=== PATIENT | female | born 1960 | race Caucasian/White ===

== ENCOUNTER 2017-05-19 08:58 | Emergency (ER) | payer BC, OTHER ==
[2017-05-19 09:14] VITALS: BP 140/88
[2017-05-19] MEDS ORDERED: Ondansetron ODT TAB* 4 MG PO ONE (10:42)
[2017-05-19] MEDS ORDERED: Al Hydrox/Mg Hydrox/Simet LIQ* 30 ML UDC PO ONE (10:42)
--- NOTE | 2017-05-19 11:10 | UC ---
Abdominal Pain Female HPI - HPI Summary HPI Summary: This is a 56 yo female with a h/o gastritis who presents with epigastric abd pain. Symptoms started ~ 3months ago after a prolonged course of Ibuprofen for a R shoulder injury. She was started on Protonix by her PCP x 30d which was effective. She has had recurrent symptoms twice since finishing the Protonix in the last 2 months. The first episode she was able to manage on her own at home. This am she had recurrence of epigastric pain with nausea, no vomiting. No recent melena or other changed to stools. She has taken 2 doses of Zantac this am without improvement. No associated CP or SOB. No palpitations. - History of Current Complaint Chief Complaint: UCAbdominalPain Stated Complaint: ABDOMINAL PAIN Time Seen by Provider: 05/19/17 10:28 Allergies/Adverse Reactions: Allergies Allergy/AdvReac Type Severity Reaction Status Date / Time No Known Allergies Allergy Verified 05/19/17 09:13 PMH/Surg Hx/FS Hx/Imm Hx Cardiovascular History: Hypertension GI/ History: Gastroesophageal Reflux - Surgical History Surgical History: Yes Surgery Procedure, Year, and Place: left knee ARTHROSCOPY 2009, left and rt hand surgery for carpal tunnel and 2 triggers fingers 2011 - Family History Family History: None pertinent - Social History Alcohol Use: Rare Alcohol Amount: 1 PER YREAR Substance Use Type: None Smoking Status (MU): Former Smoker Amount Used/How Often: 3 PACKS A DAY Have You Smoked in the Last Year: No When Did the Patient Quit Smoking/Using Tobacco: 1983 - Immunization History Most Recent Influenza Vaccination: 04/21 Most Recent Tetanus Shot: UNKNOWN Most Recent Pneumonia Vaccination: UNKNOWN Review of Systems Constitutional: Negative Skin: Negative Eyes: Negative ENT: Epistaxis Respiratory: Negative Cardiovascular: Negative Gastrointestinal: Abdominal Pain, Nausea Genitourinary: Negative Motor: Negative Neurovascular: Negative Musculoskeletal: Negative Neurological: Negative Psychological: Negative Is Patient Immunocompromised?: No All Other Systems Reviewed And Are Negative: Yes Physical Exam Triage Information Reviewed: Yes Appearance: Pain Distress - mild Vital Signs: Initial Vital Signs Temp 97.1 F 05/19/17 09:07 Pulse 76 05/19/17 09:07 Resp 18 05/19/17 09:07 BP 140/88 05/19/17 09:07 Pulse Ox 100 05/19/17 09:07 Vital Signs Reviewed: Yes ENT: Positive: Normal ENT inspection Neck exam: Normal Respiratory: Positive: Chest non-tender, Lungs clear. Negative: Crackles, Rhonchi, Stridor Cardiovascular: Positive: RRR, No Murmur Abdomen Description: Positive: Soft. Negative: Nontender - epigastric TTP Bowel Sounds: Positive: Present Musculoskeletal Exam: Normal Neurological Exam: Normal Psychological Exam: Normal Skin Exam: Normal Diagnostics - Laboratory Diagnostic Studies Completed/Ordered: UA - Re-Evaluation - Re-Evaluation First Eval Re-Evaluation Time: 11:15 Change: Improved Comment: Re-evaled after Zofran and Maalox administered with improved in symptoms Abd Pain Female Course/Dx - Course Course Of Treatment: This is a 56 yo female with recent h/o gastritis with recurrent symptoms. Recommend restarting PPI and following up with PCP for possible referral for EGD. - Differential Dx/Diagnosis Differential Diagnosis: Pancreatitis, Peptic Ulcer Disease, Renal Colic Provider Diagnoses: 1. Gastritis Discharge - Discharge Plan Condition: Stable Disposition: HOME Prescriptions: Ondansetron ODT TAB* [Zofran 4 MG Odt TAB*] 4 mg PO Q6H PRN #30 tab.odt PRN Reason: Nausea Pantoprazole TAB (NF) [Protonix TAB (NF)] 40 mg PO DAILY #30 tab Patient Education Materials: Gastritis (ED) Referrals: Carissa Hector NP [Primary Care Provider] - 1 Week Additional Instructions: Instructions: 1. Please follow up with your PCP regarding your recurrent symptoms to discuss referral for EGD 2. Take protonix as directed, use Zofran as needed for nausea
--- NOTE | 2017-05-20 18:59 | UC ---
Progress - Progress Note Progress Note: Appear pt was seen for abdominal pain and had no urinary symptoms at last visit. Urine POC showed trace leuks, but no growth on final culture. No change. - Results/Orders Results/Orders: Urine culture shows no growth Re-Evaluation - Re-Evaluation First Eval Re-Evaluation Time: 11:15 Change: Improved Comment: Re-evaled after Zofran and Maalox administered with improved in symptoms
== END 2017-05-19 11:20 | disposition home or self-care (01) ==
LOC: UCEAST 08:58
DX: K29.70 Gastritis, unspecified, without bleeding (principal); Z87.891 Personal history of nicotine dependence
CPT/HCPCS: 81003; 87086; 99212; A9270-GY; G0463

== ENCOUNTER 2017-05-21 08:08 | Emergency (ER) | payer BC, OTHER ==
--- NOTE | 2017-05-21 09:04 | UC ---
Abdominal Pain Female HPI - HPI Summary HPI Summary: 56 yo female has had chronic intermittent epigastric pain since Mar which she attributes to NSAID use Was started on PPI with good response symptoms have recurred pain epigastric seen here on 05/19 now with marked nausea and vomiting x 1 no wt change no change bowel habits or BMs - History of Current Complaint Chief Complaint: UCAbdominalPain Stated Complaint: STOMACH PAIN Time Seen by Provider: 05/21/17 08:34 Hx Obtained From: Patient Onset/Duration: Sudden Onset, Lasting Weeks Timing: Intermittent Episodes Lasting: - houyrs to days Severity Initially: Moderate Severity Currently: Moderate Pain Intensity: 4 Pain Scale Used: 0-10 Numeric Location: Epigastric Radiates: No Aggravating Factor(s): Food Alleviating Factor(s): Nothing, Medications - initially PPI helped, Other: Associated Signs and Symptoms: Positive: Nausea, Vomiting Allergies/Adverse Reactions: Allergies Allergy/AdvReac Type Severity Reaction Status Date / Time No Known Allergies Allergy Verified 05/21/17 08:19 Home Medications: Home Medications Acetaminophen [Tylenol] 325 mg PO Q6H PRN 05/21/17 [History Confirmed 05/21/17] Al Hydrox/Mg Hydrox/Simet LIQ* [Maalox Plus*] 30 ml PO Q4H PRN 05/21/17 [ History Confirmed 05/21/17] PMH/Surg Hx/FS Hx/Imm Hx Previously Healthy: Yes - Surgical History Surgical History: Yes Surgery Procedure, Year, and Place: left knee ARTHROSCOPY 2009, left and rt hand surgery for carpal tunnel and 2 triggers fingers 2011. L knee replacement - Family History Known Family History: Positive: Hypertension Family History: None pertinent - Social History Alcohol Use: Rare Alcohol Amount: 1 PER YREAR Substance Use Type: None Smoking Status (MU): Former Smoker Amount Used/How Often: 3 PACKS A DAY Have You Smoked in the Last Year: No When Did the Patient Quit Smoking/Using Tobacco: 1983 - Immunization History Most Recent Influenza Vaccination: 04/21 Most Recent Tetanus Shot: UNKNOWN Most Recent Pneumonia Vaccination: UNKNOWN Review of Systems Constitutional: Negative Skin: Negative Eyes: Negative ENT: Negative Respiratory: Negative Cardiovascular: Negative Gastrointestinal: Abdominal Pain, Vomiting, Nausea Genitourinary: Negative Motor: Negative Neurovascular: Negative Musculoskeletal: Negative Neurological: Negative Psychological: Negative Is Patient Immunocompromised?: No All Other Systems Reviewed And Are Negative: Yes Physical Exam Triage Information Reviewed: Yes Appearance: Well-Appearing, No Pain Distress, Well-Nourished Vital Signs: Initial Vital Signs Temp 98.4 F 05/21/17 08:14 Pulse 89 05/21/17 08:14 Resp 16 05/21/17 08:14 BP 130/80 05/21/17 08:14 Pulse Ox 96 05/21/17 08:14 Vital Signs Reviewed: Yes Eyes: Positive: Conjunctiva Clear ENT: Positive: Hearing grossly normal, Uvula midline. Negative: Nasal congestion, Trismus, Muffled voice, Dental tenderness, Sinus tenderness Neck: Positive: Supple, Nontender Respiratory: Positive: Lungs clear, Normal breath sounds, No respiratory distress Cardiovascular Exam: Normal Cardiovascular: Positive: RRR, No Murmur Abdomen Description: Negative: Nontender - tender epigastrium and left upper quad Musculoskeletal: Positive: ROM Intact, No Edema Neurological: Positive: Alert, Muscle Tone Normal Psychological Exam: Normal Skin Exam: Normal Diagnostics - Radiology No standard instances Xray Interpretation: Positive (See Comments) - 1. HETEROGENEOUS LIVER, WITH A MORE DIFFUSE NODULAR APPEARANCE TO THE LEFT LOBE OF LIVER. RECOMMEND CONSIDERATION OF FURTHER EVALUATION WITH MULTIPHASE CONTRAST-ENHANCED LIVER PROTOCOL CT OR CONTRAST-ENHANCED MRI OF THE ABDOMEN. 2. CHOLELITHIASI Abd Pain Female Course/Dx - Differential Dx/Diagnosis Provider Diagnoses: acute nausea/vomiting. gallstones. nodular liver Discharge - Discharge Plan Condition: Stable Disposition: HOME Patient Education Materials: Gallstones (ED), Acute Nausea and Vomiting (ED) Referrals: Nils Jackson MD [Medical Doctor] - As Soon As Possible Carissa Hector NP [Primary Care Provider] - As Soon As Possible Additional Instructions: your ultrasound showed gallstones your ultrasound showed a nodular liver which needs further investigation get your blood work including liver functions drawn as planned to er for new or worsening symptoms
--- NOTE | 2017-05-21 10:03 | RAD ---
HISTORY: Epigastric pain, vomiting COMPARISONS: July 28, 2014 TECHNIQUE: Multiple transverse and longitudinal ultrasound images were obtained of the right upper quadrant of the abdomen using grayscale, color Doppler, and spectral Doppler imaging. FINDINGS: LIVER: The liver is diffusely coarse in echotexture. There is a more diffuse nodular appearance to the parenchyma of the left lobe of liver. There is normal hepatopedal flow of the portal vein on Doppler imaging. BILIARY TREE: There is no intrahepatic or extrahepatic biliary dilatation. The common duct measures 0.2 cm. GALLBLADDER: The gallbladder is distended. Multiple shadowing echogenic foci consistent with gallstones are noted. There is no gallbladder wall thickening, pericholecystic fluid, or sonographic Hernández sign. PANCREAS: The head of the pancreas is unremarkable. The tail of the pancreas is not well visualized secondary to overlying bowel gas. RIGHT KIDNEY: The right kidney is normal in shape, size, contour, and echogenicity. There is no hydronephrosis or nephrolithiasis. The right kidney measures 12.2 x 4.3 x 4.4 cm. AORTA AND IVC: The aorta and IVC are unremarkable. Normal arterial and venous waveforms are identifiable on spectral Doppler imaging. FLUID: There are no pleural effusions. There is no free fluid within the hepatorenal recess. OTHER FINDINGS: None. IMPRESSION: 1. HETEROGENEOUS LIVER, WITH A MORE DIFFUSE NODULAR APPEARANCE TO THE LEFT LOBE OF LIVER. RECOMMEND CONSIDERATION OF FURTHER EVALUATION WITH MULTIPHASE CONTRAST-ENHANCED LIVER PROTOCOL CT OR CONTRAST-ENHANCED MRI OF THE ABDOMEN. 2. CHOLELITHIASIS.
[2017-05-21 10:10] VITALS: BP 142/94
[2017-05-21] MEDS ORDERED: Ondansetron ODT TAB* 4 MG PO ONE (10:19)
== END 2017-05-21 10:28 | disposition home or self-care (01) ==
LOC: UCEAST 08:08
DX: K80.80 Other cholelithiasis without obstruction (principal); K76.9 Liver disease, unspecified
CPT/HCPCS: 76705; 99211; A9270-GY; G0463

== ENCOUNTER → 2017-08-18 11:02 | Day surgery (SDC) | payer BC ==
[~2017-08-18 11:02] MED LIST: Atracurium* 10 MG/ML 10 ML VIAL ONE; Atropine 1MG/ML INJ* 1 ML VIAL ONE; Buffered Lidocaine 0.9% SYRIN* 5 ML/SYR SYRINGE INTRADERM ONE; Buffered Lidocaine 0.9% SYRIN* 5 ML/SYR SYRINGE ONE; Dexamethasone IV* 4 MG/ML 1 ML (4 MG) ONE; DiMENhydriNATE IV* 50 MG/ML VIAL IV PUSH PRN; Glycopyrrolate IV* 0.2 MG/ML 1 ML VIAL ONE; HYDROcodone/ACETAMIN 5-325 MG* 1 TAB PO PRN; HYDROmorphone INJ* 1 MG/ML CARPUJECT SYRINGE IV PRN; Midazolam* 1 MG/ML 2 ML VIAL (2 MG) ONE; Naloxone* 0.4 MG/ML 1 ML VIAL IV PRN; Neostigmine Methylsulfate* 2 MG/2 ML SYRINGE ONE; Ondansetron INJ* 2 MG/ML VIAL IV PRN; Ondansetron INJ* 2 MG/ML VIAL ONE; Propofol* 10 MG/ML 20 ML BTL IV PUSH ONE; Scopolamine 1.5 mg* PATCH ONE; Scopolamine 1.5 mg* PATCH TRANSDERM PRN; Scopolamine PATCH Remove* 1 NOTE MISC PATCH OFF ONE; ceFAZolin 1 GM in Dextrose (*) 2 GM/100 ML BAG IVPB ONE; fentaNYL* 50 MCG/ML 2 ML VIAL (100 MCG VIAL) IV PRN; fentaNYL* 50 MCG/ML 2 ML VIAL (100 MCG VIAL) ONE; oxyCODONE TAB* 5 MG TAB ONE; oxyCODONE TAB* 5 MG TAB PO PRN
[2017-08-18 17:00] VITALS: BP 119/64
--- NOTE | 2017-08-19 20:39 | OP ---
CC: Yasemin Gutierrez MD; Rosita Franks MD * DATE OF OPERATION: 08/18/17 - [facility] DATE OF : 56 SURGEON: Chandan Nunn MD GUARD CHIEF: FRANCES Joseph ANESTHESIOLOGIST: Dr. Contreras. ANESTHESIA: General endotracheal. PRE-OP DIAGNOSIS: Symptomatic gallstones. POST-OP DIAGNOSIS: Symptomatic gallstones. OPERATIVE PROCEDURE: Laparoscopic cholecystectomy and core needle biopsy. ESTIMATED BLOOD LOSS: Minimal. IV FLUIDS: Crystalloid. SPECIMENS: Gallbladder and core biopsy of liver. DRAINS: None. COMPLICATIONS: None. COUNTS: The instrument, needle, and sponge counts were correct. DESCRIPTION OF PROCEDURE: The patient was brought to the operating room and placed on the table supine. Sequential compression devices were placed in both lower extremities. General anesthesia was administered. The abdomen was prepped and draped in the usual sterile fashion and time-out was performed. Local anesthetic was infiltrated into the skin and soft tissue prior to making each incision. Entry to the abdomen was through a transumbilical incision used to accommodate a 5-mm trocar. Carbon dioxide was insufflated to a pressure of 15 mmHg. Under direct visualization, a 12-mm trocar was placed in the subxiphoid position and two 5-mm trocars were placed in the right upper quadrant. The liver was inspected and noted to have evidence of lobular scarring consistent with cirrhosis. The gallbladder had evidence of chronic inflammation with no acute inflammation or edema. Due to the stiffness of the liver, it was difficult to retract the gallbladder. It was able to be grasped with the fundus and partially retracted and then sharp and blunt dissection was used to divide the peritoneum along the medial and lateral aspects of the gallbladder and at the infundibulum identifying the cystic duct and cystic artery. dissected out and clipped and divided. Due to the proximity of small bowel to this area of dissection, it was decided to perform the remaining portion of the cholecystectomy in a dome down fashion, and therefore, the peritoneum and the gallbladder was scored along the fundus and the liver was retracted superiorly, the fundus and the gallbladder retracted caudad and then sharp dissection caudally used to dissect the gallbladder from the liver . Once the gallbladder was free, it was placed into a retrieval bag and retrieved through the subxiphoid port site. After assuring hemostasis, a core biopsy of the right lobe of the liver was performed through a separate stab wound incision in the right upper quadrant. The specimen was submitted to pathology in formalin. Hemostasis was assured. Ports were removed under direct visualization and carbon dioxide was released. Skin incisions were closed with 4-0 Monocryl in subcuticular fashion and Steri-Strips were applied. The patient tolerated the procedure well, was extubated and transferred to Recovery in stable condition. [id number]/[facility] #: [id number] [facility]ALTH CENTERAnnita
== END | disposition home or self-care (01) ==
LOC: OR 11:02
PROVIDERS: ATTEND Surgery
DX: K80.20 Calculus of gallbladder without cholecystitis without obstruction (principal); K75.81 Nonalcoholic steatohepatitis (NASH); I47.1 Supraventricular tachycardia; R00.2 Palpitations; Z87.891 Personal history of nicotine dependence; E66.9 Obesity, unspecified
CPT/HCPCS: 88304; 88307; A9270-GY; J0461; J0690; J1100; J2250; J2405; J2704; J3010

== ENCOUNTER 2018-10-09 12:03 | Emergency (ER) | payer BC ==
[2018-10-09 12:19] VITALS: BP 149/85
--- NOTE | 2018-10-09 12:28 | UC ---
Respiratory Complaint HPI - HPI Summary HPI Summary: 57-year-old woman comes in with a chief complaint of upper respiratory tract infection symptoms for 5-6 days. No fevers. Initially he had a runny nose and it's moved into her chest. Sputum is green. He isn't when she wakes up in the morning sputum was at its worst. Hot showers help get up the sputum. Does hear chest congestion but primarily in the morning unless later in the day. No wheezing or history of asthma. Not a smoker. - History of Current Complaint Chief Complaint: UCGeneralIllness Stated Complaint: COUGH Time Seen by Provider: 10/09/18 12:07 Pain Intensity: 0 - Allergies/Home Medications Allergies/Adverse Reactions: Allergies Allergy/AdvReac Type Severity Reaction Status Date / Time No Known Allergies Allergy Verified 10/09/18 12:11 PMH/Surg Hx/FS Hx/Imm Hx Previously Healthy: Yes - Surgical History Surgical History: Yes Surgery Procedure, Year, and Place: left knee replacement 2015 [facility] [place]. left knee arthroscopy 2009 [facility] [place]. bilateral hand ctr/trigger finger releases 2011 [facility]. galbladder 2017 - Family History Known Family History: Positive: Hypertension, Non-Contributory Family History: None pertinent - Social History Alcohol Use: None Alcohol Amount: 1 PER YREAR Substance Use Type: None Smoking Status (MU): Former Smoker Amount Used/How Often: 3 PPD for 10 years Have You Smoked in the Last Year: No When Did the Patient Quit Smoking/Using Tobacco: 1983 - Immunization History Most Recent Influenza Vaccination: 04/21 Most Recent Tetanus Shot: UNKNOWN Most Recent Pneumonia Vaccination: UNKNOWN Review of Systems All Other Systems Reviewed And Are Negative: Yes Constitutional: Positive: Negative Skin: Positive: Negative Eyes: Positive: Negative ENT: Positive: Ear Ache, Nasal Discharge, Sinus Congestion Respiratory: Positive: Cough, Other - see hpi Cardiovascular: Positive: Negative Gastrointestinal: Positive: Negative Motor: Positive: Negative Neurovascular: Positive: Negative Musculoskeletal: Positive: Negative Neurological: Positive: Negative Psychological: Positive: Negative Is Patient Immunocompromised?: No Physical Exam Triage Information Reviewed: Yes Appearance: Well-Appearing, No Pain Distress, Well-Nourished Vital Signs: Initial Vital Signs Temp 96.1 F 10/09/18 12:13 Pulse 79 10/09/18 12:13 Resp 18 10/09/18 12:13 BP 149/85 10/09/18 12:13 Pulse Ox 96 10/09/18 12:13 Vital Signs Reviewed: Yes Eye Exam: Normal Eyes: Positive: Conjunctiva Clear ENT: Positive: Pharynx normal, Nasal congestion, TMs normal Neck: Positive: Supple Respiratory: Positive: Lungs clear, Normal breath sounds, No respiratory distress Cardiovascular: Positive: RRR Musculoskeletal Exam: Normal Musculoskeletal: Positive: Strength Intact, ROM Intact Neurological Exam: Normal Neurological: Positive: Alert, Muscle Tone Normal Psychological Exam: Normal Psychological: Positive: Age Appropriate Behavior Skin Exam: Normal Respiratory Course/Dx - Course Course Of Treatment: DISCUSSED VIRAL VERSES BACTERIAL INFECTION AND THE ROLE OF ANTIBIOTICS. THE PATIENT WISHES TO BE ON ANTIBIOTICS AT THIS TIME. - Differential Dx/Diagnosis Provider Diagnosis: Bronchitis Discharge - Sign-Out/Discharge Documenting (check all that apply): Patient Departure All imaging exams completed and their final reports reviewed: No Studies - Discharge Plan Condition: Stable Disposition: HOME Prescriptions: Azithromyxin MALATHI (NF) [Z-Malathi (Zithromax) 250 mg tabs #6] 2 tab PO .TODAY, THEN 1 DAILY #6 tab Patient Education Materials: Acute Bronchitis (ED) Referrals: Yasemin Gutierrez MD [Primary Care Provider] - Additional Instructions: FOLLOW UP WITH YOUR DOCTOR IF NOT COMPLETELY IMPROVED. GET REEVALUATED SOONER FOR ANY WORSENING OF YOUR CONDITION OR ANY QUESTIONS OR CONCERNS. - Billing Disposition and Condition Condition: STABLE Disposition: Home
== END 2018-10-09 12:32 | disposition home or self-care (01) ==
LOC: UCEAST 12:03
DX: J40 Bronchitis, not specified as acute or chronic (principal); Z87.891 Personal history of nicotine dependence
CPT/HCPCS: 99212; G0463

== ENCOUNTER 2019-06-21 16:25 | Emergency (ER) | payer BC ==
[2019-06-21 16:37] VITALS: BP 143/82
[2019-06-21] MEDS ORDERED: Albuterol 2.5 MG/3 ML NEB.SOL* (0.083%) INH ONE (17:41)
--- NOTE | 2019-06-21 17:49 | UC ---
Respiratory Complaint HPI - HPI Summary HPI Summary: 58-year-old female presents with one-week history of cough, chest congestion, shortness of breath, and wheezing. States cough was initially productive for some clear sputum but has become more "tight". The shortness of breath and wheezing developed approximately 3 days ago and have progressively worsened. Patient states the wheezing is worse at night. Reports some mild nasal congestion. Denies fever, chills, ear pain, sore throat, chest pain, palpitations, diaphoresis, abdominal pain, nausea, or vomiting. - History of Current Complaint Chief Complaint: UCRespiratory Stated Complaint: COUGH, CONGESTION Time Seen by Provider: 06/21/19 17:09 Hx Obtained From: Patient Pain Intensity: 0 - Allergies/Home Medications Allergies/Adverse Reactions: Allergies Allergy/AdvReac Type Severity Reaction Status Date / Time No Known Allergies Allergy Verified 06/21/19 16:37 PMH/Surg Hx/FS Hx/Imm Hx Previously Healthy: Yes GI/ History: Gastroesophageal Reflux, Gall Bladder Disease - Surgical History Surgical History: Yes Surgery Procedure, Year, and Place: left knee replacement 2015 [facility] [place]. left knee arthroscopy 2009 [facility] [place]. bilateral hand ctr/trigger finger releases 2011 [facility] [place]. galbladder 2017 - Family History Known Family History: Positive: Hypertension - Social History Occupation: Employed Full-time Lives: With Family Alcohol Use: Rare Alcohol Amount: 1 PER YREAR Substance Use Type: None Smoking Status (MU): Former Smoker Amount Used/How Often: 3 PPD for 10 years Have You Smoked in the Last Year: No When Did the Patient Quit Smoking/Using Tobacco: 1983 - Immunization History Most Recent Influenza Vaccination: 04/21 Most Recent Tetanus Shot: UNKNOWN Most Recent Pneumonia Vaccination: UNKNOWN Review of Systems All Other Systems Reviewed And Are Negative: Yes Constitutional: Negative: Fever, Chills Eyes: Negative: Drainage, Eye Redness ENT: Positive: Nasal Discharge, Sinus Congestion. Negative: Sore Throat, Ear Ache, Sinus Pain/Tenderness Respiratory: Positive: Shortness Of Breath, Cough Cardiovascular: Negative: Chest Pain Gastrointestinal: Negative: Abdominal Pain, Vomiting, Nausea Genitourinary: Positive: Negative Musculoskeletal: Positive: Negative Neurological: Positive: Negative Is Patient Immunocompromised?: No Physical Exam - Summary Physical Exam Summary: GENERAL APPEARANCE: Alert and cooperative obese adult female who appears to be in no acute distress. EYES: Conjunctiva clear. No drainage. EARS: External auditory canals and tympanic membranes clear, hearing grossly intact. NOSE: Mild nasal congestion. No nasal discharge. THROAT: Pharynx normal. No tonsilar inflammation, swelling, exudate, or lesions. Uvula midline. NECK: Neck supple, non-tender without lymphadenopathy. CARDIAC: Normal S1 and S2. No S3, S4 or murmurs. Rhythm is regular. There is no peripheral edema, cyanosis or pallor. Extremities are warm and well perfused. Capillary refill is less than 2 seconds. Peripheral pulses intact. LUNGS: Diffuse bilateral expiratory wheezes. Bronchospastic cough. ABDOMEN: Positive bowel sounds. Soft, nondistended, nontender. No guarding or rebound. No masses or hepatosplenomegally. MUSKULOSKELETAL: ROM intact to all extremities. No joint erythema or tenderness. Normal muscular development. Normal gait. SKIN: Skin normal color, texture and turgor with no lesions or eruptions. Triage Information Reviewed: Yes Vital Signs: Initial Vital Signs Temp 97.2 F 06/21/19 16:32 Pulse 79 06/21/19 16:32 Resp 16 06/21/19 16:32 BP 143/82 06/21/19 16:32 Pulse Ox 99 06/21/19 16:32 Vital Signs Reviewed: Yes Re-Evaluation - Re-Evaluation First Eval Re-Evaluation Time: 18:20 Change: Improved Comment: Post nebulizer treatment patient states she feels like she is breathing a little more easily and the wheezing seems to have improved. She continues to have some mild diffuse wheezing bilaterally however air exchange is much improved. Respiratory Course/Dx - Course Course Of Treatment: 58-year-old female presents with one-week history of cough, chest congestion, shortness of breath, and wheezing. States cough was initially productive for some clear sputum but has become more "tight". The shortness of breath and wheezing developed approximately 3 days ago and have progressively worsened. Patient states the wheezing is worse at night. Reports some mild nasal congestion. Denies fever, chills, ear pain, sore throat, chest pain, palpitations, diaphoresis, abdominal pain, nausea, or vomiting. Afebrile. Hypertensive otherwise vital signs stable. Patient is mild nasal congestion, diffuse bilateral expiratory wheezes, a bronchospastic cough, and otherwise unremarkable exam. She was given an albuterol nebulizer treatment with some improvement. She did continue to have some mild bilateral diffuse wheezes although air exchange was much improved. We'll treat her for an acute bronchitis with reactive airway disease with a course of azithromycin, a short prednisone burst, and albuterol inhaler as needed for shortness of breath and wheezing, and Tessalon Perles as needed for cough. She is to follow-up with her primary care provider in 3 days especially if symptoms are not improving. Anticipatory guidance and warning signs are reviewed with the patient. Verbalizes understanding and agrees with plan of care. - Differential Dx/Diagnosis Differential Diagnosis/HQI/PQRI: Bronchitis, Influenza, Lower Resp Infection, Other - RAD Provider Diagnosis: Acute bronchitis, Reactive airway disease that is not asthma Discharge ED - Sign-Out/Discharge Documenting (check all that apply): Patient Departure All imaging exams completed and their final reports reviewed: No Studies - Discharge Plan Condition: Stable Disposition: HOME Prescriptions: Albuterol HFA INHALER* [Ventolin HFA Inhaler*] 2 puff INH Q4H PRN #1 mdi PRN Reason: Sob/Wheezing Azithromyxin MALATHI (NF) [Z-Malathi (Zithromax) 250 mg tabs #6] 2 tab PO .TODAY, THEN 1 DAILY #6 tab Benzonatate CAP* [Tessalon 100 MG CAP*] 100 mg PO TID PRN #21 cap PRN Reason: Cough predniSONE TAB* [Deltasone 20 MG TAB*] 40 mg PO DAILY 5 Days #10 tab Patient Education Materials: Acute Bronchitis (ED), Wheezing (ED) Referrals: Yasemin Gutierrez MD [Primary Care Provider] - 3 Days Additional Instructions: Your history and exam are consistent with acute bronchitis with reactive airway disease. Considering the duration of symptoms and the wheezing we will treat you with an antibiotic for the infection. Start azithromycin 2 tabs today then 1 tab a day for the next 4 days. Start prednisone 40 mg daily for 5 days. Use the albuterol inhaler 2 puffs every 4-6 hours as needed for shortness of breath or wheezing. Take Tessalon Perles 1 cap every 8 hours as needed for cough. Get plenty of rest. Drink plenty of fluids. Run a cool mist humidifer in your room at night. Take over the counter acetaminophen (Tylenol) or ibuprofen (Advil, Motrin) according to directions as needed for pain or fever. Follow up with your primary care provider in 3 days especially if symptoms do not improve. Seek immediate medical attention in the emergency room if you have fever greater than 100.5 F despite taking acetaminophen or ibuprofen, have chest pain , difficulty breathing, or have any worsening of symptoms. - Billing Disposition and Condition Condition: STABLE Disposition: Home
== END 2019-06-21 18:35 | disposition home or self-care (01) ==
LOC: UCEAST 16:25
DX: J20.9 Acute bronchitis, unspecified (principal); J98.8 Other specified respiratory disorders; J34.89 Other specified disorders of nose and nasal sinuses; Z87.891 Personal history of nicotine dependence
CPT/HCPCS: 99212; G0463